=== PATIENT | female | born 1995 | race Caucasian/White ===

== ENCOUNTER 2024-09-23 10:28 | Emergency (ER) | payer MEDICAID ==
[~2024-09-23] VITALS: Ht 157.5 cm; Wt 86.0 kg
[2024-09-23 10:30] VITALS: O2SAT 99
[2024-09-23 10:33] VITALS: BP 131/80; PULSE 59; RESP 16; TEMP 36.6; O2SAT 98
[2024-09-23] MEDS ORDERED: AMOX1TAB16 MT (10:51)
[2024-09-23] MEDS: TETANUS, DIPHTHERIA, PERTUSSIS VAC/PF 0.5ML (>10YR OLD) IM ONE (11:15)
== END 2024-09-23 12:08 | disposition home or self-care (01) ==
LOC: ER 10:28
DX: T14.8XXA Other injury of unspecified body region, initial encounter (principal); W55.01XA Bitten by cat, initial encounter; Y93.89 Activity, other specified; Y92.89 Other specified places as the place of occurrence of the external cause; Y99.8 Other external cause status
CPT/HCPCS: 99283